=== PATIENT | female | born 1990 | race Caucasian/White ===

== ENCOUNTER → 2024-03-30 15:41 | Outpatient (BNVA) | payer OTHER, SELFPAY | PROVIDERS: Visit Provider Physician Assistant Medical | DX: Z77.21 Contact with and (suspected) exposure to potentially hazardous body fluids (principal); Z20.2 Contact with and (suspected) exposure to infections with a predominantly sexual mode of transmission | CPT/HCPCS: 84450; 84460; 84702; 85025; 86706; 86780; 86803; 87389; 99203 ==

== ENCOUNTER → 2024-04-01 11:27 | Outpatient (BNVA) | payer OTHER, SELFPAY | PROVIDERS: Visit Provider Registered Nurse | DX: Z77.21 Contact with and (suspected) exposure to potentially hazardous body fluids (principal); Z20.5 Contact with and (suspected) exposure to viral hepatitis; Z20.2 Contact with and (suspected) exposure to infections with a predominantly sexual mode of transmission | CPT/HCPCS: 99213 ==

== ENCOUNTER → 2024-04-13 15:48 | Outpatient (BNVA) | payer OTHER, SELFPAY | DX: Z77.21 Contact with and (suspected) exposure to potentially hazardous body fluids (principal) | CPT/HCPCS: 82150; 82565; 84450; 84460; 85025; 99213 ==

== ENCOUNTER → 2024-04-27 15:17 | Outpatient (BNVA) | payer OTHER, SELFPAY | PROVIDERS: Visit Provider Physician Assistant Medical | DX: Z77.21 Contact with and (suspected) exposure to potentially hazardous body fluids (principal) | CPT/HCPCS: 80076; 82150; 82565; 85025; 99213 ==

== ENCOUNTER → 2024-05-11 15:57 | Outpatient (BNVA) | payer OTHER, SELFPAY | DX: Z77.21 Contact with and (suspected) exposure to potentially hazardous body fluids (principal) | CPT/HCPCS: 84450; 84460; 87389; 99211 ==

== ENCOUNTER 2024-05-12 09:37 | Outpatient (REF) | payer OTHER, SELFPAY ==
[2024-05-12 11:20] LABS: MANUAL DIFF FLAG NO
[2024-05-12 11:28] LABS: Basophils Percent Auto 0.4 % (0-2); Eosinophils Absolute Auto 0.1 X10*3/uL (0.0-0.4); Eosinophils Percent Auto 1.8 % (0-4); Hematocrit 39.8 % (37.0-47.0); Hemoglobin 12.9 g/dl (12.0-16.0); Imm Gran Abs Auto 0.02 X10*3/uL (0.00-0.03); Imm Gran Pct Auto 0.3 % (0.0-0.4); Lymphocytes Absolute Auto 2.2 X10*3/uL (1.2-4.9); Lymphocytes Percent Auto 33.1 % (20-40); Mean Corpuscular HGB Conc 32.4 g/dl (31.0-35.0); Mean Corpuscular Hemoglobin 27.7 pg (27.0-33.0); Mean Corpuscular Volume 85.6 fL (80.0-98.0); Mean Platelet Volume 9.9 fL (9.4-12.3); Monocytes Absolute Auto 0.4 X10*3/uL (0.1-1.2); Monocytes Percent Auto 6.6 % (2-11); Neutrophils Absolute Auto 3.9 x10*3/uL (2.0-8.3); Neutrophils Percent Auto 57.8 % (45-73); Platelet Count 269 X10*3/uL (160-400); Red Blood Count 4.65 X10*6/uL (4.20-5.50); Red Cell Distribution Width 12.1 % (11.0-16.0); White Blood Count 6.7 X10*3/uL (4.8-10.8)
[2024-05-12 12:28] LABS: Alanine Aminotransferase 70 U/L (0-31); Albumin Level 4.3 g/dL (3.5-5.0); Alkaline Phosphatase 49 U/L (39-117); Anion Gap 10 (12-20); Aspartate Amino Transferase 44 U/L (5-31); Bilirubin Direct 0.2 mg/dL (0.0-0.5); Bilirubin Total 0.5 mg/dL (0.0-1.0); Blood Urea Nitrogen 15 mg/dL (9-16); Calcium 9.1 mg/dL (8.4-10.2); Carbon Dioxide 28 mmol/L (22-29); Chloride 109 mmol/L (96-108); Estimated Glomerular Filt Rate > 60; Glucose Random 88 mg/dL (60-115); Potassium 3.5 mmol/L (3.3-5.1); Sodium 143 mmol/L (135-145); Total Protein 7.2 g/dL (6.5-8.0)
[2024-05-12 12:36] LABS: Syphilis Screen Nonreactive (Nonreactive)
[2024-05-12 12:39] LABS: HBc Num1 0.16 S/CO (0.00-0.79); HBsAGNum1 0.33 S/CO (0.00-0.99); Hepatitis A Antibody IgG Nonreactive (Nonreactive); Hepatitis A Antibody IgM 0.16 Index (0-0.79); Hepatitis B Core Antibody Nonreactive (Nonreactive); Hepatitis B Surface Antigen Negative (Negative); ~HepC Num1 0.15 S/CO (0.00-0.79); ~Hepatitis A Antibody IgG 0.26 S/CO (0.00-0.99); ~Hepatitis A Antibody IgM Nonreactive (Nonreactive); ~Hepatitis C Antibody Nonreactive (Nonreactive)
== END 2024-05-12 09:38 | disposition home or self-care (01) ==
LOC: HO.HHCL 09:37
PROVIDERS: Visit Provider Family Medicine
DX: R79.89 Other specified abnormal findings of blood chemistry (principal)
CPT/HCPCS: 36415; 80048; 80076; 85025; 86704; 86708; 86709; 86780; 86803; 87340

== ENCOUNTER → 2024-07-05 15:50 | Outpatient (BNVA) | payer OTHER, SELFPAY | DX: Z77.21 Contact with and (suspected) exposure to potentially hazardous body fluids (principal) | CPT/HCPCS: 84450; 84460; 86780; 86803; 87389; 99211 ==

== ENCOUNTER → 2024-09-26 15:47 | Outpatient (BNVA) | payer OTHER, SELFPAY | DX: Z77.21 Contact with and (suspected) exposure to potentially hazardous body fluids (principal); Z02.79 Encounter for issue of other medical certificate | CPT/HCPCS: 84450; 84460; 86592; 86780; 86803; 87389; 99211 ==

== ENCOUNTER 2025-05-22 10:46 | Outpatient (REF) | payer OTHER, SELFPAY ==
--- OUTSIDE RECORDS SUMMARY | 2025-05-19 22:15 | XMS_ITS | Encounter Summary ---
Author Organization [facility] Address [address] [place] [phone] Care Team Providers Care Rotary Envelope Machine Operator Name Role Phone Pcp, No Primary Care Provider Unavailabl e Reason for Visit * Reason Comments Cough Pt has a cold for ov er 2 weeks but her cough still lingers , hurts her chest along with shortness of breath. Encounter Details Date Type Department Care Team (Late st Contact Info) Description 05/19/2025 10:15 PM EST Office Visit [facility] [address] [phone] Pratik Decker MD [address] [place] [address] Deyanira Marina PA-C [address] [place] [phone] Post-viral cough syndrome (Primary Dx) Social History Tobacco Use Types Packs/Day Years Used Date Smoking Tobacco: Never Smokeless Tobacco: Never Alcohol Use Standard Drinks/Week Comments Yes 0 (1 standard drink = 0.6 oz pur e alcohol) Comments No Sex and Gender Information Value Date Recorded Sex Assigned at Female 12/29/2022 1:44 PM EDT Legal Sex Female 4:26 PM EDT Gender Identity Choose not to disclose 1:44 PM EDT Sexual Orientation Choose not to disclose 2022 1:44 PM EDT documented as of this encounter Last Filed Vital Signs Vital Sign Reading Time Taken Comments Blood Pressure 110/81 05/19/2025 5:34 PM EST Pulse 85 05/19/2025 5:34 PM EST Temperature 37.1 C (98.8 F) 05/19/2025 5:34 PM EST Respiratory Rate 18 05/19/2025 5:34 PM EST Oxygen Saturation 97% 05/19/2025 5:34 PM EST Inhaled Oxygen Concentration - - Weight - - Height - - Body Mass Index - - documented in this encounter Progress Notes * Deyanira Marina PA-C - 05/19/2025 5:48 PM EST Assessment & Plan 1. Post-viral cough syndrome - benzonatate (TESSALON) 200 MG capsule; Take 1 capsule (200 mg total) by mouth 3 (three) times a day as needed for cough. Dispense: 24 capsule; Refill: 0 Medical Decision Making and Data Synthesis Diagnosis of postviral cough syndrome. Considered postviral cough syndrome, pneumonia, bronchitis, sinusitis in differential diagnosis. Patient is afebrile, vital signs are reassuring. There is no evidence of bacterial infection such as sinusitis or bronchitis or pneumonia. Therefore no clinical indication for antibiotic therapy. Tessalon Perle sent to pharmacy. Use steam to help break up mucus. Tea with honey for sore throat relief. Some conditions present atypically, so is important to return to the urgent care or go to the ER ifsymptoms get worse or do not improve. Communication barriers and lifestyle preferences were addressed with the patient. The care plan including medications and self-management goals were reviewed to the best of the patient's ability. Allquestions and concerns were answered. Patient and/or family verbalized understanding of the plan ofcare. Subjective Chief Complaint Cough (Pt has a cold for over 2 weeks but her cough still lingers , hurts her chestalong with shortness of breath.) HPI Lisset Romo is a 34 y.o. adult who presents for evaluation of two weeks ago had chills, s/t, cough. Everything has resolved except the cough. Works as a nurse. Tested herself for COVID initially, was negative. ROS Admits Denies Nausea, vomiting, diarrhea, chest pain, shortness of breath, fever, sick contacts, recent travel, ear pain, discharge from ear, blood from ear, sore throat, , hx of asthma, hx of smoking History reviewed. No pertinent past medical history. Current Outpatient Medications Medication Sig Dispense Refill SPRINTEC 28 0.25-35 MG-MCG per tablet benzonatate (TESSALON) 200 MG capsule Take 1 capsule (200 mg total) by mouth 3 (three) times a day as needed for cough. 24 capsule 0 Allergies[1] History reviewed. No pertinent family history. Objective Vitals: 05/19/25 1734 BP: 110/81 Pulse: 85 Resp: 18 Temp: 98.8 ??F (37.1 ??C) SpO2: 97% CONSTITUTIONAL: Alert, in no acute distress, well-nourished and well-developed. Appears well. Nontoxic. EYES: Sclerae are clear and conjunctivae are without injection. Extraocular movements are intact without strabismus. Pupils equal round, reactive to light and accommodation bilaterally. ENT: Outer ears and nose without gross abnormality, hearing is normal. NECK: Appearance of the neck was normal and neck is supple. LUNGS: No evidence of respiratory distress and no increased work of breathing. Regular respiratory rhythm and effort with no accessory muscle use. Clear to auscultation. CARDIAC: Regular rate rhythm S1-S2 MUSCULOSKELETAL: Normal gait and no clubbing or cyanosis of the fingernails. SKIN: Exposed skin observed to be without concerning lesions or rashes. PSYCHIATRIC: Affect is normal, mood is normal, recent memory not impaired and speech pattern is without gross abnormality. Deyanira Marina PA-C This note was generated using voice recognition technology. Efforts are made to proofread the finalproduct, however minor errors in medical records director may be present. Please contact my office should any questions regarding content arise. [1] Allergies Allergen Reactions Amoxicillin-Pot Clavulanate Rash/Dermatitis Mucinex Fast-Max Day-Night Unknown/Patient and Family Unable to Define documented in this encounter Plan of Treatment Not on file documented as of this encounter Visit Diagnoses Diagnosis Post-viral cough syndrome- Primary documented in this encounter Care Teams Rotary Envelope Machine Operator Relationship Specialty Start Date End Date Pcp, No PCP - General General Medicine 05/12/23 documented as of this encounter
--- NOTE | ~2025-05-22 | XR_ITS ---
EXAMINATION: XR CHEST 2 VIEWS HISTORY: COUGH COMPARISON: There are no prior studies available for comparison. FINDINGS: PA and lateral views of the chest are submitted. There is mild pectus excavatum. The lungs are expanded and clear. There is no pleural effusion, pneumothorax, or pulmonary vascular congestion. The heart is normal in size. The bones are intact. XR/XR chest 2V IMPRESSION: Clear lungs. Electronically signed by: Dallas Conte MD 05/22/2025 12:53 PM EST
--- OUTSIDE RECORDS SUMMARY | 2025-05-22 12:22 | XMS_ITS | Encounter Summary ---
Author Organization [facility] Address [address] [place] [address] Care Team Providers Care Operations Lead Name Role Phone Elva Fuchs MD Primary Care Provider [phone] Pcp, No Primary Care Provider Unavailabl e Encounter Details Date Type Department Care Team (Late st Contact Info) Description 01/05/2018 Scanned Document [address] [phone] Elva Fuchs MD [address] [place] [phone] Social History Tobacco Use Types Packs/Day Years Used Date Smoking Tobacco: Never Alcohol Use Standard Drinks/Week Comments Not Asked 0 (1 standard drink = 0.6 oz pur e alcohol) Comments No Sex and Gender Information Value Date Recorded Sex Assigned at Female 12/29/2022 1:44 PM EDT Legal Sex Female 4:26 PM EDT Gender Identity Choose not to disclose 1:44 PM EDT Sexual Orientation Choose not to disclose 2022 1:44 PM EDT documented as of this encounter Plan of Treatment Not on file documented as of this encounter Visit Diagnoses Not on filedocumented in this encounter Care Teams Operations Lead Relationship Specialty Start Date End Date Elva Fuchs MD [address] [place] [phone] PCP - General Internal Medicine 2/3/16 12/18/23 Pcp, No PCP - General General Medicine 05/12/23 documented as of this encounter
--- OUTSIDE RECORDS SUMMARY | 2025-05-22 12:22 | XMS_ITS | Clinical Summary ---
Author Organization [employer] [facility] [employer] Address [address] [facility] [address] [place] [address] Care Team Providers Care Matcher [employer] Name Role Phone Unavailable Primary Care Provider Unavailabl e Encounters Date Type Department Care Team Description 04/07/2025 1:10 PM EST Immunization [facility] [address] [place] [address] Encounter for immunization 04/07/2025 Travel from Last 3 Months Immunizations Immunization Administration Dates Next Due Influenza, seasonal, injectable, preservative fr ee 04/07/2025,02/04/2024 Social History Tobacco Use Types Packs/Day Years Used Date Smoking Tobacco: Never Assessed Comments Unknown Sex and Gender Information Value Date Recorded Sex Assigned at Female 03/24/2022 10:37 AM EDT Legal Sex Female 10:37 AM EDT Gender Identity Choose not to disclose 10:37 AM EDT Sexual Orientation Choose not to disclose 2021 10:37 AM EDT Plan of Treatment Health Maintenance Due Date Last Done Comments Depression Screening 1990 HIV Screening 1990 SDOH Screening 1990 Disability Screening 1990 Alcohol/Substance Use Screening 2002 Tobacco Screening 2002 Family Planning (PISQ) 2005 Pap Smear 10/02/2011 Cervical Cancer Screening 2020 HPV/Cotest 2020 COVID-19 Vaccine ( season) 2025 03/14/2021, 02/21/2021 DTaP/Tdap/Td Vaccines (8 - Td or Tdap) 02/27/2030 02/28/2020, 04/23/2010, 01/12/2007, Additional history exists Zoster Vaccines (1 of 2) 2040 RSV Patients and Patients Aged 60 years or older (1 - 1-dose 75+ series) 2065 HIB Vaccines Completed 01/18/1992, 12/1990, 01/31/1991 IPV Vaccines Completed 09/24/1995, 12/1990, 01/31/1991, Additional history exists Meningococcal Vaccine Completed 01/12/2007 HPV Vaccines Completed 11/22/2008, 06/26, 05/12/2008 Hepatitis B Vaccines Completed 04/23/2010, 10/23/2008, 09/22/2008 Hepatitis C Screening Completed 05/12/2024 Influenza Vaccine Completed 04/07/2025, , 02/17/2023, Additional history exists Hepatitis A Vaccines Aged Out No long er eligible based on patient's age to complete this topic Meningococcal B Vaccine Aged Out No l onger eligible based on patient's age to complete this topic Pneumococcal Vaccine: Pediatrics (0 to 5 Years) and At-Risk Patients (6 to 49) Years Aged Out No longer eligible based on patient's age to complete this topic RSV under 20 months Aged Out No longe r eligible based on patient's age to complete this topic Rotavirus Vaccines Aged Out No longer eligible based on patient's age to complete this topic Procedures Procedure Name Priority Date/Time Associated Diagnosis Comments HEPATITIS C ANTIBODY Routine 05/12/2024 9:41 AM EST from Last 3 Months or Most Recently Relevant to Health Maintenance Results * Hepatitis C Ab (05/12/2024 9:41 AM EST) Hepatitis C Antibody Nonreactive Nonreactive [facility] Comment:Antibodies to HCV no t detected; does not exclude early acuteHCV infection. 05/12/2024 9:41 AM EST 05/12/2024 11:15 AM EST us Tamika Villaseñor DO LAB BLOOD ORDERABLES Final R esult [facility] [address] [place] [phone] from Last 3 Months or Most Recently Relevant to Health Maintenance Insurance , [address] [place] [address]
--- OUTSIDE RECORDS SUMMARY | 2025-05-22 12:22 | XMS_ITS | Encounter Summary ---
Author Organization [facility] Address [address] [place] [address] Care Team Providers Care Resident Care Coordinator Name Role Phone Pcp, No Primary Care Provider Unavailabl e Encounter Details Date Type Department Care Team (Late st Contact Info) Description 05/19/2025 Scanned Document [address] [place] [phone] Provider, Generic Social History Tobacco Use Types Packs/Day Years [...] on filedocumented in this encounter Care Teams Resident Care Coordinator Relationship Specialty Start Date End Date Pcp, No PCP - General General Medicine 05/12/23 documented as of this encounter
--- OUTSIDE RECORDS SUMMARY | 2025-05-22 12:23 | XMS_ITS | Clinical Summary ---
Author Organization [facility] Address [address] [place] [address] Care Team Providers Care Corporate Librarian Name Role Phone Pcp, No Primary Care Provider Unavailabl e Allergies Active Allergy Reactions Criticality Noted Date Comments Amoxicillin-Pot Clavulanate Rash/Dermatitis Medium Mucinex Fast-Max Day-Night Unknown/Patie nt and Family Unable to Define Medium 06/28/2015 Medications SPRINTEC 28 0.25-35 MG-MCG per tablet 05/10/20 19 Active benzonatate (TESSALON) 200 MG capsuleIndications: Post-viral cough syndrome Take 1 capsule (200 mg total) by mouth 3 (three) times a day as needed for cough. 24 capsule 05/19/20 25 026 Active azithromycin (ZITHROMAX) 250 MG tabletIndications:A cute non-recurrent maxillary sinusitis Take 2 tablets by mouth on day 1 followed by 1 tablet by mouth daily on days 2 through 5. 6 tablet 03/16/20 18 025 Discontin ued(Thera py completed ) predniSONE (DELTASONE) 20 MG tabletIndications:N cathleen turbinate hypertrophy Take 2 tablets (40 mg total) by mouth daily. With food. 6 tablet 03/16/20 18 025 Discontin ued(Thera py completed ) fluticasone (FloNASE) 50 mcg/spray nasal sprayIndications:In fluenza B 1 spray into each nostril daily. 1 Bottle 05/25/19 20 025 Discontin ued(Thera py completed ) benzonatate (TESSALON) 200 MG capsuleIndications: Influenza B Take 1 capsule (200 mg total) by mouth 3 (three) times a day as needed for cough. 21 capsule 05/25/19 20 025 Discontin ued(Thera py completed ) naproxen (NAPROSYN) 500 MG tabletIndications:S prain of interphalangeal joint of right thumb, initial encounter Take 1 tablet (500 mg total) by mouth 2 (two) times a day as needed for mild pain. Take with meals or food to reduce stomach upset. 14 tablet 02/18/20 20 025 Discontin ued(Thera py completed ) Active Problems Problem Noted Date Diagnosed Date Other acne 09/20/2013 Dysmenorrhea 09/20/2013 Encounters Date Type Department Care Team Description 05/19/2025 10:15 PM EST Office Visit [facility] [address] [phone] Pratik Decker MD [place], Deyanira Pearson, PAYousif Post-viral cough syndrome (Primary Dx) 05/19/2025 Scanned Document [address] [place] [phone] Provider, Generic from Last 3 Months Immunizations Immunization Administration Dates Next Due DTP 09/24/1995, 2,04/01/1991,01/31,1990 HPV Quadrivalent 11/22/2008,07/21/2008, 8 Hepatitis B 04/23/2010,10/23/2008,09/22/2008 Hib (PRP-OMP) 01/18/1992,04/01/1991,01/31/1991 Influenza (AFLURIA/FLUZONE) Inactivated/Split Quadrivalent with Preservative IM 06/10/2012 Influenza Inactivated/Split Preservative Free IM 02/25/2012,03/10/2011 MMR 09/22/2008,01/20/1992 Meningococcal MCV4P (Menactra) 01/12/2007 OPV 09/24/1995, 1,01/31/1991,12/03 PPD Test 02/28/2020, 3,04/21/2011,04/23 TD Preservative Free 01/12/2007 Tdap 02/28/2020, 0,09/24/1995,04/13,04/01/1991,01/31/1991,1990 Varicella 09/22/2008,09/12/1999 Social History Tobacco Use Types Packs/Day Years [...] not to disclose 2022 1:44 PM EDT Last Filed Vital Signs Vital Sign Reading Time Taken Comments Blood Pressure 110/81 05/19/2025 5:34 PM EST Pulse 85 05/19/2025 5:34 PM EST Temperature 37.1 C (98.8 F) 05/19/2025 5:34 PM EST Respiratory Rate 18 05/19/2025 5:34 PM EST Oxygen Saturation 97% 05/19/2025 5:34 PM EST Inhaled Oxygen Concentration - - Weight 64.9 kg (143 lb) 09/12/2020 2:49 PM EDT Height 162.6 cm (5' 4 ) 09/12/2020 2:49 PM EDT Body Mass Index 24.55 09/12/2020 2:49 PM EDT Plan of Treatment Health Maintenance Due Date Last Done Comments Hepatitis C Virus Screening 1990 HIV Screening 10/02/2003 Pap Smear (Ages 21-65) 10/02/2011 COVID-19 Vaccine ( season) 2025 DTaP/Tdap/Td Vaccines (8 - Td or Tdap) 02/27/2030 02/28/2020, 04/23/2010, 01/12/2007, Additional history exists HPV Vaccines Completed 11/22/2008, 06/26, 05/12/2008 Hepatitis B Vaccines Completed 04/23/2010, 10/23/2008, 09/22/2008 Influenza Vaccine Completed 04/07/2025, , 06/10/2012, Additional history exists Pneumococcal Vaccine: Pediatric (0-5 Years) and At-Risk Patients (6 to 49 Years) Aged Out No longer eligible based on patient's age to complete this topic Insurance [facility] (AUTO/LI[place]) Care Teams Corporate Librarian Relationship Specialty Start Date End Date Pcp, No PCP - General General Medicine 05/12/23
== END 2025-05-22 10:47 | disposition home or self-care (01) ==
LOC: HO.HHCX 10:46
PROVIDERS: PCP Registered Nurse; Visit Provider Registered Nurse
DX: R05.9 Cough, unspecified (principal)
CPT/HCPCS: 71046

== ENCOUNTER → 2025-05-22 11:51 | Outpatient (BNV) | payer OTHER, SELFPAY | PROVIDERS: PCP Registered Nurse; Visit Provider Radiology Diagnostic Radiology | DX: R05.9 Cough, unspecified (principal) | CPT/HCPCS: 71046 ==